=== PATIENT | male | born 1940 | race Caucasian/White ===

== ENCOUNTER → 2022-10-24 12:14 | Outpatient (BNVA) | payer MEDICARE, SELFPAY | PROVIDERS: PCP Physician Assistant; Visit Provider Otolaryngology | DX: S02.85XA Fracture of orbit, unspecified, initial encounter for closed fracture (principal); S02.40FB Zygomatic fracture, left side, initial encounter for open fracture; S00.83XA Contusion of other part of head, initial encounter; V49.9XXA Car occupant (driver) (passenger) injured in unspecified traffic accident, initial encounter | CPT/HCPCS: 99203; 99204 ==